=== PATIENT | male | born 1980 | race Caucasian/White ===

== ENCOUNTER 2017-12-17 13:02 | Emergency (ER) | payer BC ==
[2017-12-17] MEDS ORDERED: NS 0.9% 1000 ML* 1,000 ML IV ONE (13:27)
[2017-12-17] MEDS ORDERED: Hydrochlorothiazide TAB* 25 MG PO ONE (13:27)
[2017-12-17] MEDS ORDERED: Metoprolol Succinate XL TAB* 100 MG PO ONE (13:27)
--- NOTE | 2017-12-17 13:49 | RAD ---
INDICATION: Palpitations and dizziness. COMPARISON: Comparison is made with a prior study from July 19, 2007. TECHNIQUE: A portable view of the chest was obtained. FINDINGS: Cardiac and mediastinal contours appear to be within normal limits. The lungs are clear. No pleural effusion is seen. IMPRESSION: NO EVIDENCE FOR ACUTE DISEASE.
--- NOTE | 2017-12-17 13:53 | RAD ---
INDICATION: Dizziness. COMPARISON: Comparison is made with a prior CT of the brain from July 19, 2007. TECHNIQUE: Contiguous axial sections of the brain were obtained from the skull base to the vertex without contrast. FINDINGS: The ventricles, cisterns and sulci are within normal limits. No significant focal abnormality or mass effect is seen. There is no evidence for hemorrhage. No significant focal osseous abnormality is seen. The visualized portion of the paranasal sinuses and mastoid air cells appear clear. IMPRESSION: NO EVIDENCE FOR ACUTE INTRACRANIAL ABNORMALITY.
[2017-12-17 13:59] LABS: ABS Basophils 0 10^3/ul (0-0.2); ABS Eosinophils 0 10^3/ul (0-0.6); ABS Lymphocytes 0.8 10^3/ul (1.0-4.8); ABS Monocytes 0.5 10^3/ul (0-0.8); ABS Neutrophils 5.1 10^3/ul (1.5-7.7); ABS Nucleated RBC 0 10^3/ul; Eosinophil % 0.3 % (0-6); Hematocrit 44 % (42-52); Hemoglobin 15.4 g/dl (14.0-18.0); Mean Corpuscular HGB Conc 35 g/dl (31-36); Mean Corpuscular Hemoglobin 31 pg (27-31); Mean Corpuscular Volume 87 fL (80-94); Mean Platelet Volume 7.9 um3 (7.4-10.4); Nucleated Red Blood Cells % 0.1; Platelet Count 175 10^3/ul (150-450); Red Blood Count 5.04 10^6/ul (4.00-5.40); Red Cell Distribution Width 15 % (10.5-15); White Blood Count 6.4 10^3/ul (3.5-10.8)
[2017-12-17 14:14] LABS: INR 0.98 (0.77-1.02)
[2017-12-17 14:15] LABS: EGFR Non-African American 104.3 (>60)
[2017-12-17 15:15] VITALS: BP 147/74
--- NOTE | 2017-12-17 15:54 | ED ---
Mya Harrington Simon, scribed for Alexandro Finn MD on 12/17/17 at 1316 . Hypertension - HPI Summary HPI Summary: This patient is a 36 year old M presenting to [facility] accompanied by his friend with a chief complaint of dizziness since 1230 today. Pt endorses dizziness, couldnt think straight, shakiness, palpitations, dehydration, and paresthesia (in waves) in his left arm and hand. Pt noted missing blood pressure medications for past 2 days. Pt states sx are resolved at this time. He denies CP and GOLDEN. PMHx no LA, CVA, DM, HLD. PMHx HTN. - History of Current Complaint Chief Complaint: EDDizziness Stated Complaint: DIZZINESS,LT ARM TINGLING Time Seen by Provider: 12/17/17 13:12 Hx Obtained From: Patient Onset/Duration: Started Hours Ago - 1 hour, Resolved Timing: Lasting Minutes Aggravating Factor(s): Nothing Alleviating Factor(s): Nothing Associated Signs & Symptoms: Tingling, Dizziness, Other: - Shakes Current Medications: Beta Harrison - Allergies/Home Medications Allergies/Adverse Reactions: Allergies Allergy/AdvReac Type Severity Reaction Status Date / Time No Known Allergies Allergy Verified 12/17/17 13:06 Home Medications: Home Medications Hydrochlorothiazide TAB* [Hydrodiuril TAB*] 25 mg PO DAILY 12/17/17 [History Confirmed 12/17/17] Metoprolol Succinate XL TAB* [Toprol XL TAB*] 100 mg PO DAILY 12/17/17 [History Confirmed 12/17/17] PMH/Surg Hx/FS Hx/Imm Hx Endocrine/Hematology History: Denies: Hx Diabetes Cardiovascular History: Reports: Hx Hypertension Denies: Hx Hypercholesterolemia, Hx Myocardial Infarction Sensory History: Denies: Hx Legally Blind Opthamlomology History: Denies: Hx Legally Blind EENT History: Denies: Hx Deafness Neurological History: Denies: Hx CVA Infectious Disease History: No Infectious Disease History: Denies: Traveled Outside the [place] in Last 30 Days - Family History Known Family History: Positive: Hypertension - Father, Diabetes - Father, Other - [place] grandmother Review of Systems Positive: Other - Dehydration Positive: Palpitations. Negative: Chest Pain Neurological: Other - Dizziness Positive: Paresthesia. Negative: Headache All Other Systems Reviewed And Are Negative: Yes Physical Exam - Summary Physical Exam Summary: General: well-appearing, no pain distress Skin: warm, color reflects adequate perfusion, dry Head: normal Eyes: EOMI, EMILI ENT: normal Neck: supple, nontender Respiratory: CTA, breath sounds present Cardiovascular: RRR Abdomen: soft, nontender Bowel: present Musculoskeletal: normal, strength/ROM intact Neurological: sensory/motor intact, A&O x3 Psychological: affect/mood appropriate Triage Information Reviewed: Yes Vital Signs On Initial Exam: Initial Vitals Temp Pulse Resp BP Pulse Ox 97.9 F 102 15 179/97 100 12/17/17 13:02 12/17/17 13:02 12/17/17 13:02 12/17/17 13:02 12/17/17 13:02 Vital Signs Reviewed: Yes Diagnostics - Vital Signs Vital Signs Temp Pulse Resp BP Pulse Ox 12/17/17 13:02 97.9 F 102 15 179/97 100 - Laboratory Lab Results: Lab Results 12/17/17 12/17/17 12/17/17 Range/Units 13:47 13:47 13:47 WBC 6.4 (3.5-10.8) 10^3/ul RBC 5.04 (4.00-5.40) 10^6/ul Hgb 15.4 (14.0-18.0) g/dl Hct 44 (42-52) % MCV 87 (80-94) fL MCH 31 (27-31) pg MCHC 35 (31-36) g/dl RDW 15 (10.5-15) % Plt Count 175 (150-450) 10^3/ul MPV 7.9 (7.4-10.4) um3 Neut % (Auto) 79.8 (38-83) % Lymph % (Auto) 12.0 L (25-47) % Walton % (Auto) 7.5 H (0-7) % Eos % (Auto) 0.3 (0-6) % Baso % (Auto) 0.4 (0-2) % Absolute Neuts (auto) 5.1 (1.5-7.7) 10^3/ul Absolute Lymphs (auto) 0.8 L (1.0-4.8) 10^3/ul Absolute Monos (auto) 0.5 (0-0.8) 10^3/ul Absolute Eos (auto) 0 (0-0.6) 10^3/ul Absolute Basos (auto) 0 (0-0.2) 10^3/ul Absolute Nucleated RBC 0 10^3/ul Nucleated RBC % 0.1 INR (Anticoag Therapy) 0.98 (0.77-1.02) APTT 30.0 (26.0-36.3) seconds D-Dimer, Quantitative < 200 (Less Than 230) ng/mL Sodium 137 (135-145) mmol/L Potassium 4.4 (3.5-5.0) mmol/L Chloride 101 (101-111) mmol/L Carbon Dioxide 28 (22-32) mmol/L Anion Gap 8 (2-11) mmol/L BUN 9 (6-24) mg/dL Creatinine 0.83 (0.67-1.17) mg/dL Est GFR ( Amer) 126.1 (>60) Est GFR (Non-Af Amer) 104.3 (>60) BUN/Creatinine Ratio 10.8 (8-20) Glucose 118 H (70-100) mg/dL Lactic Acid (0.5-2.0) mmol/L Calcium 9.4 (8.6-10.3) mg/dL Magnesium 1.9 (1.9-2.7) mg/dL Total Bilirubin 0.80 (0.2-1.0) mg/dL AST 25 (13-39) U/L ALT 38 (7-52) U/L Alkaline Phosphatase 45 (34-104) U/L Total Creatine Kinase 297 H (10-223) U/L CK-MB (CK-2) 7.2 H (0.6-6.3) ng/mL Troponin I 0.00 (<0.04) ng/mL C-Reactive Protein 1.55 (<8.01) mg/L Total Protein 7.3 (6.4-8.9) g/dL Albumin 4.4 (3.2-5.2) g/dL Globulin 2.9 (2-4) g/dL Albumin/Globulin Ratio 1.5 (1-3) Lipase 32 (11.0-82.0) U/L TSH 0.74 (0.34-5.60) mcIU/mL 12/17/17 Range/Units 13:47 WBC (3.5-10.8) 10^3/ul RBC (4.00-5.40) 10^6/ul Hgb (14.0-18.0) g/dl Hct (42-52) % MCV (80-94) fL MCH (27-31) pg MCHC (31-36) g/dl RDW (10.5-15) % Plt Count (150-450) 10^3/ul MPV (7.4-10.4) um3 Neut % (Auto) (38-83) % Lymph % (Auto) (25-47) % Walton % (Auto) (0-7) % Eos % (Auto) (0-6) % Baso % (Auto) (0-2) % Absolute Neuts (auto) (1.5-7.7) 10^3/ul Absolute Lymphs (auto) (1.0-4.8) 10^3/ul Absolute Monos (auto) (0-0.8) 10^3/ul Absolute Eos (auto) (0-0.6) 10^3/ul Absolute Basos (auto) (0-0.2) 10^3/ul Absolute Nucleated RBC 10^3/ul Nucleated RBC % INR (Anticoag Therapy) (0.77-1.02) APTT (26.0-36.3) seconds D-Dimer, Quantitative (Less Than 230) ng/mL Sodium (135-145) mmol/L Potassium (3.5-5.0) mmol/L Chloride (101-111) mmol/L Carbon Dioxide (22-32) mmol/L Anion Gap (2-11) mmol/L BUN (6-24) mg/dL Creatinine (0.67-1.17) mg/dL Est GFR ( Amer) (>60) Est GFR (Non-Af Amer) (>60) BUN/Creatinine Ratio (8-20) Glucose (70-100) mg/dL Lactic Acid 1.1 (0.5-2.0) mmol/L Calcium (8.6-10.3) mg/dL Magnesium (1.9-2.7) mg/dL Total Bilirubin (0.2-1.0) mg/dL AST (13-39) U/L ALT (7-52) U/L Alkaline Phosphatase (34-104) U/L Total Creatine Kinase (10-223) U/L CK-MB (CK-2) (0.6-6.3) ng/mL Troponin I (<0.04) ng/mL C-Reactive Protein (<8.01) mg/L Total Protein (6.4-8.9) g/dL Albumin (3.2-5.2) g/dL Globulin (2-4) g/dL Albumin/Globulin Ratio (1-3) Lipase (11.0-82.0) U/L TSH (0.34-5.60) mcIU/mL Result Diagrams: 12/17/17 13:47 12/17/17 13:47 Lab Statement: Any lab studies that have been ordered have been reviewed, and results considered in the medical decision making process. - Radiology CXR Xray Interpretation: No Acute Changes Radiology Interpretation Completed By: Radiologist - No evidence for acute disease. Dr. Finn has reviewed this report. - CT Brain CT Interpretation: No Acute Changes CT Interpretation Completed By: Radiologist - No evidence for acute intranial abnormality. - EKG 1334 Cardiac Rate: NL - 89 EKG Rhythm: Sinus Rhythm ST Segment: Normal Ectopy: None Re-Evaluation - Re-Evaluation First Eval Re-Evaluation Time: 14:58 Change: Improved Comment: Discussed lab and imaging results, as well as what pt wants for plan of care moving forward. Pt declined trop level recheck. Pt feels fine, denies any sx. Discussed D/C. Hypertension Course/Dx - Course Course Of Treatment: PATIENT HAD BEEN WITHOUT HIS BP MEDS FOR 2 FDAYS; THESE WERE GIVEN IN THE ED. PATIENT FEELS WELL IN ED. NO NEUROLOGIC DEFICIT. DID NOT HAVE CHEST PAIN. DISCUSSED RESULTS WITH THE PATIENT TO INCLUDE REPEATING A TROPONIN. THE PATIENT DECLINES A REPEAT TROPONIN. WILL F/U WITH PMD; RETURN TO ED IF WORSE. - Diagnoses Provider Diagnoses: Palpitations, Dizziness, Paresthesia of left arm, Hypertension Discharge - Sign-Out/Discharge Documenting (check all that apply): Discharge/Admit/Transfer - Discharge Plan Condition: Stable Disposition: HOME Patient Education Materials: Heart Palpitations (ED), Paresthesia (ED), Hypertension (ED), Dizziness (ED) Referrals: Hakeem ALLISON,Steph G. [Medical Doctor] - Additional Instructions: FOLLOW UP WITH YOUR DOCTOR. RETURN TO THE EMERGENCY DEPARTMENT FOR ANY WORSENING OF YOUR CONDITION; CHEST PAIN, SHORTNESS OF BREATH, WEAKNESS, NUMBNESS, DIFFICULTY WITH SPEECH OR VISION OR QUESTIONS OR CONCERNS. - Billing Disposition and Condition Condition: STABLE Disposition: Home The documentation as recorded by the Mya olivia Simon accurately reflects the service I personally performed and the decisions made by me, Alexandro Finn MD.
== END 2017-12-17 15:14 | disposition home or self-care (01) ==
LOC: ED 13:02
DX: R00.2 Palpitations (principal); R42 Dizziness and giddiness; R20.2 Paresthesia of skin; I10 Essential (primary) hypertension; Z79.899 Other long term (current) drug therapy
CPT/HCPCS: 36415; 70450; 71045; 80053; 82550; 82553; 83605; 83690; 83735; 84443; 84484; 85025; 85379; 85610; 85730; 86140; 93005; 99283; A9270-GY

== ENCOUNTER 2019-05-06 17:32 | Emergency (ER) | payer BC ==
[2019-05-06 17:46] VITALS: BP 149/84
--- NOTE | 2019-05-06 18:02 | UC ---
General HPI - HPI Summary HPI Summary: 38 year old male with PMH + for HTN, dx'd ~ 10 years ago, on metoprolol/ HCTZ x ~ 10 years. no side effects from medication. REcently moved to [facility], has not established PCP. Last saw PCP in [place], [place] over a year ago, refused to fill medications. Patient denies lightheadedness, GOLDEN, palpiations, faitgue, SOB, pain. NO complaints. TOok medication this AM, but no longer has refills / med. requesting refill. Patient brought in medication bottles for verificaion, prior PCP Dr. Lewis. - History of Current Complaint Chief Complaint: UCMedRefill Stated Complaint: medicatION REFILL Time Seen by Provider: 05/06/19 17:48 Hx Obtained From: Patient Onset/Duration: Other Current Severity: None Pain Intensity: 0 Associated Signs & Symptoms: Negative: Agitation, Cough, Chest Pain, Decreased Responsiveness, Dizziness, Decreased Oral Intake, Diaphoresis, Edema, Fever, Headache, Hematemesis, Palpitations, Recent Medication Changes, Syncope, SOB, Vomiting, Wheezing, Weakness - Allergy/Home Medications Allergies/Adverse Reactions: Allergies Allergy/AdvReac Type Severity Reaction Status Date / Time No Known Allergies Allergy Verified 12/17/17 13:06 PMH/Surg Hx/FS Hx/Imm Hx Previously Healthy: Yes - htn - Surgical History Surgical History: None - Family History Known Family History: Positive: Hypertension - Father, Diabetes - Father, Other - [place] grandmother, Non-Contributory - Social History Occupation: Employed Full-time Alcohol Use: Occasionally Alcohol Amount: beer Substance Use Type: None Smoking Status (MU): Never Smoked Tobacco Review of Systems All Other Systems Reviewed And Are Negative: Yes Constitutional: Positive: Negative Respiratory: Positive: Negative Cardiovascular: Positive: Negative Gastrointestinal: Positive: Negative Motor: Positive: Negative Musculoskeletal: Positive: Negative. Negative: Arthralgia Is Patient Immunocompromised?: No Physical Exam Triage Information Reviewed: Yes Appearance: Well-Appearing, No Pain Distress, Well-Nourished Vital Signs: Initial Vital Signs Temp 97.7 F 05/06/19 17:42 Pulse 72 05/06/19 17:42 Resp 16 05/06/19 17:42 BP 149/84 05/06/19 17:42 Pulse Ox 99 05/06/19 17:42 Vital Signs Reviewed: Yes Eyes: Positive: Conjunctiva Clear ENT: Positive: Hearing grossly normal Respiratory: Positive: Chest non-tender, Lungs clear, Normal breath sounds, No respiratory distress, No accessory muscle use. Negative: Respiratory distress, Crackles, Rhonchi, Stridor, Wheezing Cardiovascular: Positive: RRR, No Murmur, Pulses Normal Neurological Exam: Normal Psychological Exam: Normal Skin Exam: Normal Course/Dx - Course Course Of Treatment: HTN, stable. Med refill. - Blood pressure OK today - Please call [facility] to obtain a primary physician or follow up with the [facility] if you do not have insurance for medications - Go to ER with increased blood pressure, headache, lightheadedness, increased heart rate/ anxiety, chest pain, shortness of breath - Differential Dx - Multi-Symptom Differential Diagnoses: Other - Diagnoses Provider Diagnosis: HTN (hypertension) Discharge ED - Sign-Out/Discharge Documenting (check all that apply): Patient Departure All imaging exams completed and their final reports reviewed: No Studies - Discharge Plan Condition: Good Disposition: HOME Prescriptions: Hydrochlorothiazide TAB* [Hydrodiuril TAB*] 25 mg PO DAILY #30 tab Metoprolol Succinate XL TAB* [Toprol XL TAB*] 100 mg PO DAILY #30 tab.xl Patient Education Materials: Hypertension (ED) Referrals: No Primary Care Phys,NOPCP [Primary Care Provider] - [facility] [Outside] [facility] [Provider Group] Additional Instructions: - Blood pressure OK today - Please call [facility] to obtain a primary physician or [facility] if you do not have insurance for medications - Go to ER with increased blood pressure, headache, lightheadedness, increased heart rate/ anxiety, chest pain, shortness of breath - Billing Disposition and Condition Condition: GOOD Disposition: Home - Attestation Statements Provider Attestation: Per institutional requirements, I have reviewed the chart, however, I was not consulted specifically or made aware of this patient by the midlevel provider. I did not personally evaluate, interact with , or disposition this patient.
== END 2019-05-06 18:04 | disposition home or self-care (01) ==
LOC: UCEAST 17:32
DX: I10 Essential (primary) hypertension (principal); Z76.0 Encounter for issue of repeat prescription
CPT/HCPCS: 99211; G0463

== ENCOUNTER 2019-06-06 15:17 | Emergency (ER) | payer BC ==
--- NOTE | 2019-06-06 15:23 | UC ---
Hypertension HPI - HPI Summary HPI Summary: 38 yo male presents requesting med refill. He tells me that he has been on metoprolol and HCTZ for 10+ years and recently moved back to the area. He came here about a month ago requesting refills of these same medications and they were refilled for 30 days with instructions to f/u with PCP. He was given info to the referral line, but admits he never called to schedule because "life got busy". He ran out of medication yesterday. Has been feeling well and denies headaches, dizziness, SOB, chest pain, n/v, numbness, tingling, DENT. - History of Current Complaint Stated Complaint: MED REFILL Time Seen by Provider: 06/06/19 15:21 Hx Obtained From: Patient - Allergies/Home Medications Allergies/Adverse Reactions: Allergies Allergy/AdvReac Type Severity Reaction Status Date / Time No Known Allergies Allergy Verified 06/06/19 15:27 PMH/Surg Hx/FS Hx/Imm Hx Cardiovascular History: Hypertension - Surgical History Surgical History: None - Family History Known Family History: Positive: Hypertension - Father, Diabetes - Father, Other - [place] grandmother, Non-Contributory - Social History Occupation: Employed Full-time Lives: With Family Alcohol Use: Occasionally Alcohol Amount: beer Substance Use Type: None Smoking Status (MU): Never Smoked Tobacco Review of Systems All Other Systems Reviewed And Are Negative: No Constitutional: Positive: Negative Skin: Positive: Negative Eyes: Positive: Negative ENT: Positive: Negative Respiratory: Positive: Negative Cardiovascular: Positive: Negative Gastrointestinal: Positive: Negative Neurovascular: Positive: Negative Neurological: Positive: Negative Psychological: Positive: Negative Physical Exam - Summary Physical Exam Summary: GENERAL: NAD. WDWN. No pain distress. SKIN: No rashes, sores, or open wounds. NECK: Supple. Nontender. No lymphadenopathy. CHEST: CTAB. No r/r/w. No accessory muscle use. Breathing comfortably and in no distress. CV: RRR. Pulses intact. Brisk cap refill. MSK: Moves all extremities. NEURO: Alert. PSYCH: Age appropriate behavior. Triage Information Reviewed: Yes Vital Signs: Vital Signs: Temp Pulse Resp BP Pulse Ox 98.6 F 73 16 143/90 99 06/06/19 15:22 06/06/19 15:22 06/06/19 15:22 06/06/19 15:22 06/06/19 15:22 Vital Signs Reviewed: Yes Hypertension Course/Dx - Course Course Of Treatment: Acceptable BP control exhibited here today. I called Cris Osman at the [facility] referral line and she did not answer - I left a message for her to contact pt to set up a PCP appt. Discussed with pt and will refill his medications for 30 days and instructed him to contact Cris Osman if he has not heard anything from her within the next 3- 5 business days. - Differential Dx/Diagnosis Provider Diagnosis: HTN (hypertension) Discharge ED - Sign-Out/Discharge Documenting (check all that apply): Patient Departure All imaging exams completed and their final reports reviewed: No Studies - Discharge Plan Condition: Stable Disposition: HOME Prescriptions: Hydrochlorothiazide TAB* [Hydrodiuril TAB*] 25 mg PO DAILY #30 tab Metoprolol Succinate XL TAB* [Toprol XL TAB*] 100 mg PO DAILY #30 tab.xl Patient Education Materials: Chronic Hypertension (ED) Referrals: No Primary Care Phys,NOPCP [Primary Care Provider] - Additional Instructions: If you develop a fever, shortness of breath, chest pain, new or worsening symptoms - please call your PCP or go to the ED immediately. Cris Osman will call you within a few days to schedule you an appointment with a Primary Doctor based on your location and schedule -- It is very important that you schedule an appointment with a PCP within 30 days - Billing Disposition and Condition Condition: STABLE Disposition: Home - Attestation Statements Provider Attestation: I was available for consult. This patient was seen by the [facility]. The patient was not presented to, seen by, or examined by me. -Timi
[2019-06-06 15:27] VITALS: BP 143/90
== END 2019-06-06 15:52 | disposition home or self-care (01) ==
LOC: UCEAST 15:17
DX: I10 Essential (primary) hypertension (principal); Z76.0 Encounter for issue of repeat prescription
CPT/HCPCS: 99212; G0463